=== PATIENT | female | born 1995 | race Caucasian/White ===

== ENCOUNTER 2018-12-02 08:59 | Inpatient (IN) | payer MEDICAID ==
[2018-12-02] MEDS ORDERED: IBUPROFEN 600 MG TAB PO (10:30)
[2018-12-02] MEDS ORDERED: CARBOPROST 250 MCG INJ IM ×2 (10:30→22:00)
[2018-12-02] MEDS ORDERED: MISOPROSTOL 200 MCG TAB PR ×2 (10:30→22:00)
[2018-12-02] MEDS ORDERED: METHYLERGONOVINE 0.2 MG INJ IM ×2 (10:30→22:00)
[2018-12-02] MEDS ORDERED: OXYTOCIN 30 UNITS/LR 500 ML IV ×4 (10:30→22:00)
[2018-12-02] MEDS ORDERED: LIDOCAINE 1% (MPF) 30 ML INJ INJ (10:30)
[2018-12-02] MEDS: LACTATED RINGER'S 1,000 ML IV ×3 (10:58→20:25)
[2018-12-02] MEDS ORDERED: ALBUTEROL HFA 8 GM INHALER INH (11:00)
[2018-12-02 11:19] LABS: ADD MAN DIFF? NO
[2018-12-02 11:22] LABS: BASOPHIL # 0.1 10^3/ul (0.0-0.1); BASOPHILS % 0.6 % (0.0-2.0); EOSINOPHILS # 0.1 10^3/ul (0.0-0.5); EOSINOPHILS % 0.6 % (0.0-7.0); HEMATOCRIT 38.8 % (37.0-47.0); HEMOGLOBIN 13.4 g/dl (12.0-16.0); LYMPHOCYTES # 2.1 10^3/ul (0.8-2.9); MEAN CORPUSCULAR HEMOGLOBIN 31.2 pg (29.0-33.0); MEAN CORPUSCULAR HGB CONC 34.5 g/dl (32.0-37.0); MEAN CORPUSCULAR VOLUME 90.2 fl (82.0-101.0); MEAN PLATELET VOLUME 11.1 fl (7.4-10.4); MONOCYTE # 0.5 10^3/ul (0.3-0.9); MONOCYTES % 4.4 % (0.0-11.0); NEUTROPHIL # 8.1 10^3/ul (1.6-7.5); NEUTROPHILS % 74.9 % (39.0-77.0); PLATELET COUNT 206 10^3/UL (140-415); RED CELL DISTRIBUTION WIDTH 13.4 % (11.5-14.5)
[2018-12-02 11:22] LABS: WHITE BLOOD COUNT 10.8 10^3/ul (4.8-10.8)
[2018-12-02 11:42] LABS: INR 0.81; PROTIME 11.3 Sec (11.9-14.9); PT RATIO 0.9
[2018-12-02 11:43] LABS: PARTIAL THROMBOPLASTIN TIME 23.6 Sec (23.0-35.0)
[2018-12-02] MEDS: AMPICILLIN 2 GM/NS (PMX) 100 ML IVPB (14:58)
[2018-12-02] MEDS: BUTORPHANOL 2 MG INJ IV (16:19)
[2018-12-02 16:54] LABS: RAPID PLASMA REAGIN NONREACTIVE (NR)
[2018-12-02] MEDS: OXYTOCIN 30 UNITS/LR 500 ML IV ×4 (18:57→21:33)
[2018-12-02] MEDS: AMPICILLIN 1 GM/NS (PMX) 50 ML IVPB (18:58)
[2018-12-02] MEDS ORDERED: FENTAnyl 2MCG/ML-ROPIV 0.2% 100 ML (19:59)
[2018-12-02] MEDS ORDERED: NALOXONE (0.4 MG/ML) INJ IV (20:30)
[2018-12-02] MEDS ORDERED: FENTAnyl 2MCG/ML-ROPIV 0.2% 100 ML BAG EPI (20:30)
[2018-12-02] MEDS ORDERED: DIPHENHYDRAMINE 50 MG INJ IV (20:30)
[2018-12-02] MEDS: LACTATED RINGER'S 1,000 ML IV* (21:33)
[2018-12-02] MEDS ORDERED: HYDROCODONE/APAP (5/325) TAB PO (22:00)
[2018-12-03] MEDS: IBUPROFEN 600 MG TAB PO ×5 (00:26→23:38)
[2018-12-03] MEDS: LANOLIN HPA 1 PKT TOP ×2 (00:26→17:16)
[2018-12-03] MEDS: LACTATED RINGER'S 1,000 ML IV* (05:33)
[2018-12-03 08:12] LABS: ADD MAN DIFF? NO
[2018-12-03 08:17] LABS: BASOPHIL # 0.1 10^3/ul (0.0-0.1); BASOPHILS % 0.5 % (0.0-2.0); EOSINOPHILS # 0.1 10^3/ul (0.0-0.5); EOSINOPHILS % 0.5 % (0.0-7.0); HEMATOCRIT 35.4 % (37.0-47.0); HEMOGLOBIN 12.2 g/dl (12.0-16.0); LYMPHOCYTES % 15.3 % (15.0-51.0); MEAN CORPUSCULAR HEMOGLOBIN 31.2 pg (29.0-33.0); MEAN CORPUSCULAR HGB CONC 34.5 g/dl (32.0-37.0); MEAN CORPUSCULAR VOLUME 90.5 fl (82.0-101.0); MEAN PLATELET VOLUME 11.7 fl (7.4-10.4); MONOCYTE # 0.8 10^3/ul (0.3-0.9); MONOCYTES % 6.2 % (0.0-11.0); NEUTROPHIL # 9.8 10^3/ul (1.6-7.5); PLATELET COUNT 158 10^3/UL (140-415); RED BLOOD COUNT 3.91 10^6/ul (4.20-5.40); RED CELL DISTRIBUTION WIDTH 13.2 % (11.5-14.5)
[2018-12-03 08:17] LABS: WHITE BLOOD COUNT 12.8 10^3/ul (4.8-10.8)
[2018-12-03] MEDS: MEASLES,MUMPS,RUBELLA VACCINE INJ SC* (15:17)
[2018-12-04] MEDS: IBUPROFEN 600 MG TAB PO ×2 (05:38→12:28)
[2018-12-04] MEDS: MAGNESIUM HYDROXIDE 30ML CUP PO (09:53)
[2018-12-04] MEDS: DIPHTH/TET/ACEL PERTUSS (ADULT) 0.5 ML VIAL IM* (09:54)
[2018-12-04] MEDS: BISACODYL 10 MG SUPP PR (09:54)
[2018-12-04] MEDS: LANOLIN HPA 1 PKT TOP (12:29)
== END 2018-12-04 14:20 | disposition home or self-care (01) | DRG 807 ==
LOC: OBT 08:59 → L-D 08:59 → OBT 09:52 → L-D 09:50 → PP1 23:08
PROVIDERS: Obstetrics & Gynecology
PROC: 10E0XZZ Delivery of Products of Conception, External Approach (ICD-10-PCS; principal; 2018-12-02)
DX: O80 Encounter for full-term uncomplicated delivery (principal); Z37.0 Single live birth; Z3A.39 39 weeks gestation of pregnancy
CPT/HCPCS: 76818; 85025; 85610; 85730; 86592; 86850; 86900; 86901; 90715